=== PATIENT | male | born 1960 | race Caucasian/White ===

== ENCOUNTER 2018-05-27 00:24 | Inpatient (IN) | payer OTHER ==
[~2018-05-27] VITALS: Ht 193 cm; Wt 116.9 kg
[~2018-05-27 00:24] MED LIST: ASPIR 8181 M1 PO; BENTYL20 MG PO; ENDOCET 5-3251 EACH PO; PROTONIX20 MG PO; PROTONIX40 MG PO; VITAMIN B12-FO1 EACH PO; VITAMIN D-32000 UNI2 PO
[2018-05-27 01:03] LABS: HEMATOCRIT 40.9 % (38.0-50.0); HEMOGLOBIN 13.8 G/DL (12.5-16.6); MCH 29.6 PG (29.0-34.0); MCHC 33.7 G/DL (30.0-36.0); MCV 87.8 FL (86-99); PLATELET COUNT 152 K/uL (156-360); RBC DIS.WIDTH-CV 13.5 % (11.8-14.6); RBC DIS.WIDTH-SD 43.6 % (39-53); RED BLOOD COUNT 4.66 M/uL (4.00-5.50)
[2018-05-27 01:13] LABS: CHLORIDE 108 mEq/L (99-109); POTASSIUM 3.9 mEq/L (3.7-5.4); SODIUM 140 mEq/L (136-147)
[2018-05-27 01:15] LABS: GLUCOSE 109 mg/dL (70-99)
[2018-05-27 01:19] LABS: GFR ESTIMATE (CALCULATED) > 59 mL/min/ (58.99-99999)
[2018-05-27 01:20] LABS: UREA NITROGEN (BUN) 19 mg/dL (9-23)
[2018-05-27 01:27] LABS: TROP-I INTERPRETATION NEGATIVE; TROPONIN-I < 0.01 ng/mL (0.0-0.30)
[2018-05-27 03:32] LABS: BASOPHIL (%) 0.3 % (0-1); EOSINOPHIL (%) 7.2 % (0-5); EOSINOPHIL COUNT 0.4 K/uL (0-0.3); IMMATURE GRANULOCYTE (%) 0.5 % (0.0-0.7); LYMPHOCYTE (%) 9.2 % (15-42); LYMPHOCYTE COUNT 0.6 K/uL (1.0-2.8); MONOCYTE (%) 10.3 % (3-12); MONOCYTE COUNT 0.6 K/uL (0-0.8); NEUTROPHIL (%) 72.5 % (45-76); NEUTROPHIL COUNT 4.4 K/uL (1.8-6.4)
[2018-05-27 03:52] LABS: PTT 28.1 SEC (25-37)
[2018-05-27 07:32] VITALS: BP 117/69
[2018-05-27 15:46] VITALS: BP 111/66
[2018-05-27 20:03] VITALS: BP 123/68
[2018-05-27 22:37] VITALS: BP 125/68
[2018-05-28 03:50] VITALS: BP 103/57
[2018-05-28 06:54] VITALS: BP 118/66
[2018-05-28 11:11] VITALS: BP 129/69
[2018-05-28 16:34] VITALS: BP 123/73
[2018-05-28 19:15] VITALS: BP 116/62
[2018-05-28 23:53] VITALS: BP 114/58
[2018-05-29 05:18] VITALS: BP 105/62
[2018-05-29 06:15] LABS: BASOPHIL (%) 0.3 % (0-1); EOSINOPHIL (%) 7.3 % (0-5); EOSINOPHIL COUNT 0.4 K/uL (0-0.3); HEMATOCRIT 40.4 % (38.0-50.0); HEMOGLOBIN 13.7 G/DL (12.5-16.6); IMMATURE GRANULOCYTE (%) 0.2 % (0.0-0.7); LYMPHOCYTE (%) 10.2 % (15-42); LYMPHOCYTE COUNT 0.6 K/uL (1.0-2.8); MCH 29.3 PG (29.0-34.0); MCHC 33.9 G/DL (30.0-36.0); MCV 86.3 FL (86-99); MONOCYTE (%) 9.8 % (3-12); MONOCYTE COUNT 0.6 K/uL (0-0.8); NEUTROPHIL (%) 72.2 % (45-76); NEUTROPHIL COUNT 4.3 K/uL (1.8-6.4); PLATELET COUNT 156 K/uL (156-360); RBC DIS.WIDTH-CV 13.2 % (11.8-14.6); RBC DIS.WIDTH-SD 41.3 % (39-53); RED BLOOD COUNT 4.68 M/uL (4.00-5.50)
[2018-05-29 06:50] LABS: CHLORIDE 104 MEQ/L (99-109); CREATININE 0.9 MG/DL (0.6-1.3); GFR ESTIMATE (CALCULATED) > 59 mL/min/ (58.99-99999); GLUCOSE 106 mg/dL (70-99); POTASSIUM 3.9 MEQ/L (3.7-5.4); SODIUM 138 MEQ/L (136-147); UREA NITROGEN (BUN) 14 mg/dL (9-23)
[2018-05-29 06:55] VITALS: BP 106/62
[2018-05-29 10:59] VITALS: BP 120/78
[2018-05-29 15:10] VITALS: BP 118/67
[2018-05-29] MEDS ORDERED: ELIQUIS5 MG PO (19:43)
== END 2018-05-29 20:35 | disposition home or self-care (01) | DRG 176 ==
LOC: EME 00:24 → 5EAST 04:30 → EDOF 04:30 → ENRESERV 04:49 → 5EAST 07:15
PROVIDERS: Internal Medicine; Internal Medicine Hematology & Oncology
DX: I26.99 Other pulmonary embolism without acute cor pulmonale (principal); C82.18 Follicular lymphoma grade II, lymph nodes of multiple sites; D69.6 Thrombocytopenia, unspecified; K21.9 Gastro-esophageal reflux disease without esophagitis; R16.1 Splenomegaly, not elsewhere classified; R59.0 Localized enlarged lymph nodes; Z86.711 Personal history of pulmonary embolism; Z90.49 Acquired absence of other specified parts of digestive tract; Z79.82 Long term (current) use of aspirin; Z79.01 Long term (current) use of anticoagulants; Z80.42 Family history of malignant neoplasm of prostate; Z82.49 Family history of ischemic heart disease and other diseases of the circulatory system
CPT/HCPCS: 71046; 71275; 80048; 81240 90; 84484; 85025; 85027; 85379; 85610; 85730; 86146 90; 86147 90; 93005; 99281; 99285; J7040

== ENCOUNTER 2018-06-03 23:42 | Inpatient (IN) | payer OTHER ==
[~2018-06-03] VITALS: Ht 193 cm; Wt 114.1 kg
[~2018-06-03 23:42] MED LIST changes: +ELIQUIS5 MG PO
[2018-06-04 00:07] LABS: HEMATOCRIT 43.2 % (38.0-50.0); HEMOGLOBIN 15.3 G/DL (12.5-16.6); MCH 30.2 PG (29.0-34.0); MCHC 35.4 G/DL (30.0-36.0); MCV 85.2 FL (86-99); RBC DIS.WIDTH-CV 12.8 % (11.8-14.6); RBC DIS.WIDTH-SD 39.5 % (39-53); RED BLOOD COUNT 5.07 M/uL (4.00-5.50); WHITE BLOOD COUNT 7.7 K/uL (4.1-10.2)
[2018-06-04 00:09] LABS: PLATELET COUNT 216 K/uL (156-360)
[2018-06-04 00:21] LABS: APPEARANCE CLEAR ((CLEAR)); BILIRUBIN NEGATIVE; BLOOD NEGATIVE; COLOR YELLOW ((YELLOW)); GLUCOSE (STRIP) NEGATIVE; KETONES NEGATIVE; LEUKOCYTES NEGATIVE; NITRITE NEGATIVE; PROTEIN (STRIP) NEGATIVE; SPECIFIC GRAVITY 1.017 (1.000-1.030); UCUL ADDED? NO; UROBILINOGEN 0.2 MG/DL (0.2-1.0)
[2018-06-04 00:22] LABS: ALBUMIN 4.4 g/dL (3.2-4.8); CHLORIDE 106 mEq/L (99-109); POTASSIUM 4.3 mEq/L (3.7-5.4); SODIUM 139 mEq/L (136-147)
[2018-06-04 00:24] LABS: GLUCOSE 113 mg/dL (70-99); TOTAL PROTEIN 7.4 g/dL (6.4-8.3)
[2018-06-04 00:27] LABS: TOTAL BILIRUBIN 0.7 mg/dL (0.0-1.0)
[2018-06-04 00:28] LABS: ALKALINE PHOSPHATASE 103 IU/L (3-129); CREATININE 1.1 mg/dL (0.6-1.3); GFR ESTIMATE (CALCULATED) > 59 mL/min/ (58.99-99999)
[2018-06-04 00:29] LABS: UREA NITROGEN (BUN) 15 mg/dL (9-23)
[2018-06-04 00:30] LABS: AST (GOT) 17 IU/L (2-34)
[2018-06-04 00:31] LABS: ALT (GPT) 16 IU/L (3-49)
[2018-06-04 02:02] LABS: LIPASE 28 U/L (1.0-51.0)
[2018-06-04 05:01] VITALS: BP 114/68
[2018-06-04 08:02] VITALS: BP 111/67
[2018-06-04 11:06] VITALS: BP 109/68
[2018-06-04 16:25] VITALS: BP 122/69
[2018-06-04 19:49] VITALS: BP 119/71
[2018-06-04 23:12] VITALS: BP 120/71
[2018-06-05 06:03] LABS: HEMATOCRIT 39.9 % (38.0-50.0); HEMOGLOBIN 13.3 G/DL (12.5-16.6); MCH 28.9 PG (29.0-34.0); MCHC 33.3 G/DL (30.0-36.0); MCV 86.7 FL (86-99); PLATELET COUNT 186 K/uL (156-360); RBC DIS.WIDTH-CV 12.8 % (11.8-14.6); RBC DIS.WIDTH-SD 40.6 % (39-53); WHITE BLOOD COUNT 4.3 K/uL (4.1-10.2)
[2018-06-05 06:20] LABS: ALBUMIN 3.6 G/DL (3.2-4.8); ALKALINE PHOSPHATASE 78 IU/L (3-129); ALT (GPT) 14 IU/L (3-49); AMYLASE 24 IU/L (1-118); AST (GOT) 17 IU/L (2-34); CHLORIDE 107 MEQ/L (99-109); GFR ESTIMATE (CALCULATED) > 59 mL/min/ (58.99-99999); GLUCOSE 110 mg/dL (70-99); LACTATE DEHYDROGENASE 153 IU/L (20-246); LIPASE 37 U/L (1.0-51.0); POTASSIUM 4.7 MEQ/L (3.7-5.4); SODIUM 141 MEQ/L (136-147); TOTAL BILIRUBIN 0.7 MG/DL (0.0-1.0); TOTAL PROTEIN 5.4 G/DL (6.4-8.3); UREA NITROGEN (BUN) 9 mg/dL (9-23)
[2018-06-05 08:28] VITALS: BP 115/56
[2018-06-05] MEDS ORDERED: ELIQUIS5 MG PO (13:42)
[2018-06-05 15:41] VITALS: BP 120/75
[2018-06-06 00:08] VITALS: BP 105/62
[2018-06-06 08:22] VITALS: BP 126/69
[2018-06-06 11:57] VITALS: BP 120/76
[2018-06-06 15:28] VITALS: BP 116/63
== END 2018-06-06 19:26 | disposition home or self-care (01) | DRG 841 ==
LOC: EME 23:42 → EDOF 06-04 03:50 → 3EAST 06-04 03:50 → ENRESERV 06-04 04:06 → 3EAST 06-04 04:55
PROVIDERS: Internal Medicine
DX: C82.13 Follicular lymphoma grade II, intra-abdominal lymph nodes (principal); I27.82 Chronic pulmonary embolism; K21.9 Gastro-esophageal reflux disease without esophagitis; Z79.01 Long term (current) use of anticoagulants; Z82.49 Family history of ischemic heart disease and other diseases of the circulatory system; Z90.49 Acquired absence of other specified parts of digestive tract
CPT/HCPCS: 74018; 74177; 80053; 81003; 82150; 83615; 83690; 85027; 99281; 99284; J1170; J2405; J3010; J7030; J7042